=== PATIENT | female | born 1995 | race Caucasian/White ===

== ENCOUNTER 2016-12-29 17:48 | Emergency (ER) | payer SELFPAY ==
[~2016-12-29] VITALS: Ht 162.6 cm; Wt 69.0 kg
[2016-12-29] MEDS ORDERED: IBUPROFEN 800 MG TABLET PO ONE (20:15)
[2016-12-29 20:41] VITALS: BP 122/80
== END 2016-12-29 20:42 | disposition home or self-care (01) ==
LOC: EMS 17:49
DX: S30.0XXA Contusion of lower back and pelvis, initial encounter (principal); J45.909 Unspecified asthma, uncomplicated; V49.40XA Driver injured in collision with unspecified motor vehicles in traffic accident, initial encounter; Y93.89 Activity, other specified; Y92.89 Other specified places as the place of occurrence of the external cause; Y99.8 Other external cause status
CPT/HCPCS: 81025; 99283